=== PATIENT | male | born 1975 | race Caucasian/White ===

== ENCOUNTER 2024-05-15 13:02 | Outpatient (REF) | payer BC, SELFPAY ==
[2024-05-16 09:59] LABS: Hepatitis C Ab w Rflx HCV PCR Negative (Negative)
[2024-05-16 11:03] LABS: HIV-1/2 Ag & Ab Screen Negative (Negative)
== END 2024-05-15 13:03 | disposition home or self-care (01) ==
LOC: NCHCN 13:02
PROVIDERS: PCP Family Medicine; Visit Provider Family Medicine
DX: Z00.00 Encounter for general adult medical examination without abnormal findings (principal)
CPT/HCPCS: 86803; 87389